=== PATIENT | female | born 1970 | race Caucasian/White ===

== ENCOUNTER 2022-02-06 16:54 | Emergency (ER) | payer BC, SELFPAY ==
[2022-02-06 17:13] VITALS: BP 157/89; PULSE 81; RESP 16; TEMP 36.9; O2SAT 97; BMI 29.3
--- NOTE | 2022-02-06 19:04 | ED_ITS ---
HPI - General Adult General Chief complaint: Dizziness/Vertigo Stated complaint: Dizziness Time Seen by Provider: 02/06/22 18:42 History of Present Illness HPI narrative: This 52-year-old female comes in reporting dizziness for the past 3 or 4 days. She clarifies this to mean vertigo. She states that if she remains still she has no vertigo symptoms but these recur with movement especially if turning her head to the right. She does not report any hearing changes and has no sensory or motor deficit. Prior to this she has been in good health. Related Data Home Medications Medication Instructions Recorded Confirmed betamethasone, augmented 0.05 % applic TOPICAL 02/06/22 topical cream fluoxetine 20 mg capsule mg 02/06/22 guselkumab 100 mg/mL subcutaneous mg SUBCUT 02/06/22 auto-injector (Tremfya) omeprazole 20 mg capsule,delayed mg 02/06/22 release rosuvastatin 10 mg tablet mg 02/06/22 Previous Rx's Medication Instructions Recorded meclizine 25 mg tablet 25 mg PO QID #20 tab 02/06/22 ondansetron HCl 4 mg tablet 4 mg PO Q6H #20 tab 02/06/22 Allergies Allergy/AdvReac Type Severity Reaction Status Date / Time No Known Drug Allergies Allergy Verified 02/06/22 17:24 Review of Systems Status of ROS: Reports: 10 or more systems reviewed and unremarkable except as noted in History and below Narrative: Constitutional: No fevers, no weight gain or loss. Eyes: No discharge. No vision changes. HENT: No congestion, no sore throat, no ear pain. Cardiovascular: No chest pain, no palpitations. Respiratory: No shortness of breath, no wheezes, no cough. Gastrointestinal: No abdominal pain, no vomiting, no diarrhea. Genitourinary: No dysuria, no hematuria. Musculoskeletal: Normal range of motion. Skin: No rashes, no pruritis. Neurological: No weakness, sensory change, speech change. Vertigo symptoms as described above. Endo/Heme/Allergies: No bruising or bleeding. No polydipsia. Pysch: no suicidality, no anxiety, no insomnia. All other systems reviewed and are negative. Exam Narrative: Exam Narrative: Constitutional: Well-developed, well-nourished, no acute distress. HEENT: Normocephalic, atraumatic. Neck: Normal range of motion. Nontender. Supple. Heart: Regular. No murmurs. Normal rate. Intact distal pulses. Lungs: Clear to auscultation. No chest discomfort. No wheezes, rhonchi, or rales. Abdomen: Normal bowel sounds. Nontender. No rebound tenderness. Genitalia: Deferred. Back: No midline tenderness. Normal range of motion. Extremities: Normal range of motion. No injury. Skin: Intact. No rash. Warm. No erythema or pallor. Neurologic: No altered sensation. No weakness. Alert and oriented. No facial asymmetry. Tongue is midline. No pronator drift. [id number] is normal. Heel to dillon is normal. Psychiatric: No suicidality. No anxiety or depression. No insomnia. Nursing notes and vitals signs are reviewed. Const: Vital Signs, click to edit/add: Vital Signs - 24 hr 02/06/22 17:13 Temperature 98.5 F Pulse Rate [Right Radial] 81 Respiratory Rate 16 Blood Pressure [Ri ght Upper Arm] 157/89 H Pulse Oximetry 97 Course Vital Signs Vital signs: Initial Vital Signs Temperature 98.5 F 02/06/22 17:13 Temperature Source Temporal Artery Scan 02/06/22 17:13 Pulse Rate 81 02/06/22 17:13 Respiratory Rate 16 02/06/22 17:13 Blood Pressure 157/89 H 02/06/22 17:13 Blood Pressure Mean 111 02/06/22 17:13 Blood Pressure Position Sitting 02/06/22 17:13 Pulse Oximetry 97 02/06/22 17:13 Oxygen Delivery Method 02/06/22 17:13 Vital Signs Temperature 98.5 F 02/06/22 17:13 Pulse Rate 81 02/06/22 17:13 Respiratory Rate 16 02/06/22 17:13 Blood Pressure 157/89 H 02/06/22 17:13 Pulse Oximetry 97 02/06/22 17:13 Temperature 98.5 F 02/06/22 17:13 Pulse Rate 81 02/06/22 17:13 Respiratory Rate 16 02/06/22 17:13 Blood Pressure 157/89 H 02/06/22 17:13 Pulse Oximetry 97 02/06/22 17:13 Medical Decision Making MDM Narrative Medical decision making narrative: This patient comes in reporting vertigo as described above. Her symptoms are not persistent or constant. They completely go away when remaining still suggesting a peripheral process and not a central vertigo from a CVA. The patient's neurologic exam is completely normal. I discussed lab and imaging options but indicated that these will not help in the diagnosis for these common causes of vertigo. Her symptoms are worse when turning her head to the right which may be suggestive of a benign positional vertigo from a canalith in the semi circular canal. I did describe the option of having a canalith repositioning maneuver that can be done in physical therapy or certain clinicians can perform this. She did receive meclizine and Zofran which brought some symptomatic relief. A prescription for these medicines is provided. Discharge Plan Discharge Clinical Impression: Benign paroxysmal positional vertigo Patient Disposition: Home, Self-Care Condition: Stable Instructions: Benign Paroxysmal Positional Vertigo (ED) Additional Instructions: Take medication as prescribed and needed. Follow up with physical therapy or clinic if not improving for consideration of a canalith repositioning maneuver. Prescriptions: New ondansetron HCl 4 mg tablet 4 mg PO Q6H Qty: 20 0RF meclizine 25 mg tablet 25 mg PO QID Qty: 20 0RF No Action betamethasone, augmented 0.05 % cream TOPICAL 0RF Label Comments: APPLY TO AFFECTED AREA ON LEGS AND TRUNK 1-2X DAILY FOR UP TO 2 WEEKS NEEDED omeprazole 20 mg capsule,delayed release(DR/EC) 0RF Label Comments: TAKE 1 CAPSULE BY MOUTH DAILY fluoxetine 20 mg capsule 0RF Label Comments: TAKE 1 CAPSULE BY MOUTH DAILY rosuvastatin 10 mg tablet 0RF Label Comments: TAKE 1 TABLET BY MOUTH DAILY Tremfya 100 mg/mL auto-injector SUBCUT 0RF Label Comments: 2 months ago Follow Up/Referrals: Ángela Yan MD [Primary Care Provider] - Stand Alone Forms: [employer] Info Instructions
[2022-02-06] MEDS: MECLIZINE HCL 25 MG TABLET PO (19:51)
[2022-02-06] MEDS: ONDANSETRON ODT 4 MG TAB PO (19:52)
== END 2022-02-06 20:37 | disposition home or self-care (01) ==
PROVIDERS: Emergency Provider Emergency Medicine Emergency Medical Services; PCP Family Medicine
DX: H81.10 Benign paroxysmal vertigo, unspecified ear (principal)
CPT/HCPCS: 99284; A9270

== ENCOUNTER 2022-06-17 14:15 | Outpatient (CLI) | payer BC, SELFPAY ==
--- OUTSIDE RECORDS SUMMARY | 2022-06-17 14:17 | XMS_ITS | Clinical Summary ---
:1970 Author Organization [facility] [place] [address] Care Team Providers Name Role Phone Ángela Yan MD Primary Care Provider [phone] Allergies No known active allergies Medications Medication Sig Dispensed Refills Start Date End Date Status rosuvastatin Take 1 tablet by 0 06/06/2020 Active (CRESTOR) 10 mg mouth once daily. tablet FLUoxetine (PROZAC) Take 1 capsule by 0 05/10/2020 Active 20 mg capsule mouth once daily. DENNIS,CF, PEN 40 Inject 1 pen 0 06/07/2020 Active mg/0.4 mL pnkt subcutaneous every 2 weeks. omeprazole Take 1 capsule by 0 06/20/2020 Active (PRILOSEC) 20 mg mouth once daily Delayed-Release before a meal. 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 tower Pulse 83 06/20/2020 9:05 AM GOLD LEAF LABORER Temperature - - Respiratory Rate - - Oxygen Saturation 96% 06/20/2020 9:05 AM GOLD LEAF LABORER Inhaled Oxygen Concentration - - Weight 72.9 kg (160 lb 12.8 oz) 06/20/2020 9:05 AM GOLD LEAF LABORER Height - - Body Mass Index - - Plan of Treatment Health Maintenance Due Date Last Done Comments COVID-19 vaccine series (#1) 1970 Tdap 01/24/1979 Depression screening for age 12+ 1980 BMI (ht and wt on same day) for 01/24/1986 age 18+ Hepatitis C screening for age 0701/24/1986 18-79 Tetanus booster 1988 Colonoscopy through age 75 01/24/2013 Lipids for age 45-75 01/24/2013 Mammogram for age 45-75 01/24/2013 Zoster (shingles) series for age 0701/24/2018 50+ (1 of 2) Influenza for age 50-64 03/27/2022 Pap test for age 21-65 05/28/2023 05/28/2020, 05/28/2020, 12/29/2014, Additional history exists Results Not on filefrom Last 3 Months Insurance Payer Benefit Plan / Subscriber ID Effective Dates Phone Addre ss Type Group BLUE [employer]OSS [employer] [place] [id number] 2009-Present [address] [address] [place] [address] Care Teams Antenna Specialist Relationship Specialty Start Date End Date Ángela Yan MD PCP - General Family Practice 06/20/201999 [place] [id number]
--- NOTE | 2022-06-17 14:40 | CRLHL7_ITS ---
For Patients: As a result of the Century Cures Act, medical imaging exams and procedure reports are released immediately into your electronic medical record. You may view this report before your referring provider. If you have questions, please contact your health care provider. BILATERAL SCREENING MAMMOGRAM WITH COMPUTER-AIDED DETECTION AND TOMOSYNTHESIS TECHNIQUE: CC and MLO views were obtained. These mammographic images have been obtained using full-field digital technique. These mammographic images were interpreted with the benefit of computer-aided detection. Breast Tomosynthesis was used in this interpretation. COMPARISON FILM: 03/04/22, 01/10/20, 11/09/18. FINDINGS: There are scattered areas of fibroglandular density IMPRESSION: There is no radiographic evidence for malignancy. ASSESSMENT: BI-RADS Category 1: Negative RECOMMENDATION: Routine screening mammogram in 1 year. A lay language report of this examination will be provided to the patient. Praveen Liang M.D. Diagnostic Radiologist [email or web address] LOULOU/Dictated by: Praveen Liang MD @ 06/18/2022 12:46:00 PM (Electronically Signed)
== END 2022-06-17 14:16 | disposition home or self-care (01) ==
PROVIDERS: PCP Family Medicine; Visit Provider Family Medicine
DX: Z12.31 Encounter for screening mammogram for malignant neoplasm of breast (principal)
CPT/HCPCS: 77063; 77067

== ENCOUNTER 2022-07-31 10:54 | Outpatient (CLI) | payer BC, SELFPAY ==
[2022-07-31 10:08] LABS: Albumin* 4.3 g/dL (3.3-5.0); Chloride* 106 mmol/L (96-114); Sodium* 142 mmol/L (135-149)
[2022-07-31 10:09] LABS: Potassium* 4.4 mmol/L (3.6-5.1)
[2022-07-31 10:10] LABS: Cholesterol* 167 mg/dL (90-199)
[2022-07-31 10:11] LABS: Alanine Aminotransferase* 23 U/L (4-35); Alkaline Phosphatase* 64 U/L (40-150); Aspartate Amino Transferase* 25 U/L (12-35); Bilirubin Total* 0.4 mg/dL (0.1-1.5); Blood Urea Nitrogen* 12 mg/dL (7-30); Carbon Dioxide* 28 mmol/L (20-32); Creatinine* 0.8 mg/dL (0.5-1.5); Estimated Glomerular Filt Rate 88 ml/min; Glucose* 98 mg/dL (60-115); Total Protein* 6.4 g/dL (6.0-8.3); Triglycerides* 79 mg/dL (40-149)
[2022-07-31 10:12] LABS: HDL Cholesterol* 57 mg/dL (>=50); LDL Cholesterol Calculated 94 mg/dL (<100)
== END 2022-07-31 10:55 | disposition home or self-care (01) ==
PROVIDERS: PCP Family Medicine; Visit Provider Family Medicine
DX: Z00.00 Encounter for general adult medical examination without abnormal findings (principal); E78.5 Hyperlipidemia, unspecified; E66.3 Overweight; E66.9 Obesity, unspecified; R03.0 Elevated blood-pressure reading, without diagnosis of hypertension
CPT/HCPCS: 80053; 80061

== ENCOUNTER 2022-10-17 13:50 | Outpatient (REF) | payer BC, SELFPAY ==
[2022-10-17 14:13] LABS: Basophils Absolute Auto 0.04 K/uL (0.00-0.30); Basophils Percent Auto 0.6 % (0.0-3.0); Eosinophils Absolute Auto 0.14 K/uL (0.00-0.50); Eosinophils Percent Auto 2.2 % (0.0-7.0); Hematocrit 43.5 % (33.0-51.0); Hemoglobin* 14.6 gm/dL (12.0-16.0); Immature Granulocytes Abs Auto 0.01 K/uL (0.00-0.30); Immature Granulocytes Pct Auto 0.2 %; Lymphocytes Absolute Auto 2.04 K/uL (0.90-2.90); Lymphocytes Percent Auto 31.9 % (20-44); Mean Corpuscular HGB Conc 34 gm/dL (32-36); Mean Corpuscular Hemoglobin 30 pg (26-34); Mean Corpuscular Volume 89 fL (80-100); Monocytes Percent Auto 6.4 % (0.0-11.0); Neutrophils Absolute Auto 3.75 K/uL (1.7-7.0); Neutrophils Percent Auto 58.7 % (42.0-72.0); Platelet Count* 249 K/uL (140-440); RDW Coefficient of Variation % 12.5 % (11.5-15.5); Red Blood Count 4.89 m/uL (4.00-5.20); White Blood Count* 6.39 K/uL (4.50-11.00)
[2022-10-17 14:20] LABS: Slide Review Reflex No
[2022-10-17 14:25] LABS: Albumin* 4.5 g/dL (3.3-5.0); Chloride* 105 mmol/L (96-114); Sodium* 139 mmol/L (135-149)
[2022-10-17 14:26] LABS: Potassium* 4.4 mmol/L (3.6-5.1)
[2022-10-17 14:28] LABS: Alkaline Phosphatase* 61 U/L (40-150); Aspartate Amino Transferase* 29 U/L (12-35); Bilirubin Total* 0.5 mg/dL (0.1-1.5); Blood Urea Nitrogen* 14 mg/dL (7-30); Carbon Dioxide* 29 mmol/L (20-32); Estimated Glomerular Filt Rate 67 ml/min
[2022-10-17 14:29] LABS: Alanine Aminotransferase* 32 U/L (4-35); Calcium* 9.2 mg/dL (8.4-10.6); Glucose* 85 mg/dL (60-115)
== END 2022-10-17 13:51 | disposition home or self-care (01) ==
LOC: NPINS 13:50
PROVIDERS: PCP Family Medicine
DX: Z79.899 Other long term (current) drug therapy (principal)
CPT/HCPCS: 80053; 85025; 86480

== ENCOUNTER 2023-08-28 13:03 | Outpatient (CLI) | payer BC, SELFPAY ==
--- OUTSIDE RECORDS SUMMARY | 2023-08-28 13:06 | XMS_ITS | Clinical Summary ---
Author Name Unknown Organization [facility] Address [place], [place] [address] Care Team Providers Care Solution Engineer Name Role Phone Ángela Yan MD Primary Care Provider + Allergies No known active allergies Medications Medication Sig Dispensed Refills Start Date End Date Status rosuvastatin (CRESTOR) 10 mg tablet Take 1 tablet by mouth once daily. 0 06/06/2020 Active FLUoxetine (PROZAC) 20 mg capsule Take 1 capsule by mouth once daily. 0 05/10/2020 Active HUMIRA,CF, PEN 40 mg/0.4 mL pnkt Inject 1 pen subcutaneous every 2 weeks. 0 06/07/2020 Active omeprazole (PRILOSEC) 20 mg Delayed-Release capsule Take 1 capsule by mouth once daily before a meal. 0 06/20/2020 Active Family History Medical History Relation Name Comments Stroke Maternal Grandfather Stroke Maternal Grandmother Relation Name Status Comments Maternal Grandfather Maternal Grandmother Social History Tobacco Use Types Packs/Day Years Used Date Smoking Tobacco: Never Smokeless Tobacco: Never Tobacco Cessation:Counseling Given: Yes Sex and Gender Information Value Date Recorded Sex Assigned at Not on file Gender Identity Not on file Sexual Orientation Not on file Obstetrics History Last Filed Vital Signs Vital Sign Reading Time Taken Comments Blood Pressure 134/84 06/20/2020 9:05 AM 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[employer] FURNACE tow er Pulse 83 06/20/2020 9:05 AM 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[employer]URNACE Temperature - - Respiratory Rate - - Oxygen Saturation 96% 06/20/2020 9:05 AM 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[employer]URNACE Inhaled Oxygen Concentration - - Weight 72.9 kg (160 lb 12.8 oz) 06/20/2020 9:05 AM 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[employer] FURNACE Height - - Body Mass Index - - Plan of Treatment Health Maintenance Due Date Last Done Comments COVID-19 vaccine series (#1) 1970 Tdap 01/24/1979 Depression screening for age 12+ 1980 HIV for age 15-65 01/24/1983 BMI (ht and wt on same day) for age 18+ 01/24/1986 Hepatitis C screening for age 18-79 01/24/1986 Tetanus booster 1988 Colonoscopy through age 75 01/24/2013 Lipids for age 45-75 01/24/2013 Mammogram for age 45-75 01/24/2013 Zoster (shingles) series for age 50+ (1 of 2) 01/24/2018 Influenza for age 50-64 03/27/2023 Pap test for age 21-65 05/28/2023 0, 05/28/2020, 12/29/2014, Additional history exists Pneumococcal series for age 6-64 Aged Out No longer eligible based on patient's age to complete this topic Care Teams Solution Engineer Relationship Specialty Start Date End Date Ángela Yan MD [address] [facility] [place] [address] PCP - General Family Practice 06/20/20
--- NOTE | 2023-08-28 13:20 | CRLHL7_ITS ---
For Patients: As a result of the Century Cures Act, medical imaging exams and procedure reports are released immediately into your electronic medical record. You may view this report before your referring provider. If you have questions, please contact your health care provider. BILATERAL DIGITAL SCREENING MAMMOGRAM WITH TOMOSYNTHESIS AND COMPUTER-AIDED DETECTION CLINICAL HISTORY: Routine screening exam. COMPARISON: 06/17/2022, 03/04/2021, 01/10/2020, 11/09/2018. TECHNIQUE: Digital mammogram in CC and MLO projections including computer-aided detection (CAD). Tomosynthesis utilized. BREAST COMPOSITION: There are areas of scattered fibroglandular density. FINDINGS: RIGHT Breast: Focal asymmetric density 12 o`clock 5 cm from the nipple. LEFT Breast: No suspicious findings. IMPRESSION: RIGHT breast asymmetry/mass. RECOMMENDATIONS: Additional mammographic views of the RIGHT breast including 3D spot compression CC/MLO. RIGHT breast ultrasound may also be required. BI-RADS Category 0: Incomplete: Need Additional Imaging Evaluation and/or Prior Mammograms for Comparison [facility] will contact the patient for follow-up. A lay language report of this examination will be provided to the patient. Dictated by Praveen Liang MD @ 09/01/2023 10:13:53 AM jj/Dictated by: Praveen Liang MD @ 09/01/2023 10:13:00 AM (Electronically Signed)
== END 2023-08-28 13:04 | disposition home or self-care (01) ==
LOC: MAMMO 13:04
PROVIDERS: PCP Family Medicine; Visit Provider Family Medicine
DX: Z12.31 Encounter for screening mammogram for malignant neoplasm of breast (principal); N63.10 Unspecified lump in the right breast, unspecified quadrant
CPT/HCPCS: 77063; 77067

== ENCOUNTER 2023-09-08 08:40 | Outpatient (CLI) | payer BC, SELFPAY ==
--- OUTSIDE RECORDS SUMMARY | 2023-09-08 08:42 | XMS_ITS | Clinical Summary ---
Author Name Unknown Organization [employer] [facility] Address [place], [place] [address] Care Team Providers Care Prosthetic Assistant Name Role Phone Ángela Yan MD Primary [...] Comments Blood Pressure 134/84 06/20/2020 9:05 AM BOARDING ROOM FIXER tow er Pulse 83 06/20/2020 9:05 AM BOARDING ROOM FIXER Temperature - - Respiratory Rate - - Oxygen Saturation 96% 06/20/2020 9:05 AM BOARDING ROOM FIXER Inhaled Oxygen Concentration - - Weight 72.9 kg (160 lb 12.8 oz) 06/20/2020 9:05 AM BOARDING ROOM FIXER Height - - Body Mass Index - [...] age to complete this topic Care Teams Prosthetic Assistant Relationship Specialty Start Date End Date Ángela Yan MD [address] [facility] [place] [address] PCP - General Family Practice 06/20/20
--- NOTE | 2023-09-08 08:45 | MM_ITS ---
DIAGNOSTIC RIGHT BREAST MAMMOGRAM AND DIAGNOSTIC RIGHT BREAST ULTRASOUND. INDICATION: ASYMMETRIC DENSITY RIGHT BREAST. COMPARISON: 08/28/2023. TECHNIQUE: 3D SPOT COMPRESSION ML/MLO RIGHT BREAST MAMMOGRAM IMAGES SUBMITTED. DECREASED CONSPICUITY OF THE PREVIOUSLY NOTED ASYMMETRIC DENSITY. NO SUSPICIOUS MASS. NO SUSPICIOUS CALCIFICATIONS OR ADENOPATHY. TARGETED RIGHT BREAST ULTRASOUND PERFORMED AT 1:00 A.M. 5 CM FROM THE NIPPLE. A HYPOECHOIC BENIGN CYST IS PRESENT AT MID DEPTH MEASURING 6 X 3 X 7 MM. NO ABNORMAL VASCULARITY. IMPRESSION: BENIGN FIBROCYSTIC CHANGE RIGHT BREAST 1:00 A.M. 5 CM FROM THE NIPPLE. NO EVIDENCE OF MALIGNANCY. NO SUSPICIOUS FINDINGS. BI-RADS CATEGORY 2. BENIGN. RECOMMENDATIONS: ROUTINE ANNUAL BILATERAL SCREENING MAMMOGRAPHY. RESULTS AND RECOMMENDATIONS DISCUSSED WITH THE PATIENT.
== END 2023-09-08 08:41 | disposition home or self-care (01) ==
LOC: MAMMO 08:40
PROVIDERS: PCP Family Medicine; Visit Provider Family Medicine
DX: N64.89 Other specified disorders of breast (principal)
CPT/HCPCS: 76642; 77065; G0279

== ENCOUNTER 2023-09-22 08:26 | Outpatient (CLI) | payer BC, SELFPAY | END 2023-09-22 08:27 | disposition home or self-care (01) | LOC: NFLDREF 09-30 12:39 | PROVIDERS: PCP Family Medicine; Referring Provider Family Medicine; Visit Provider Family Medicine | DX: R03.0 Elevated blood-pressure reading, without diagnosis of hypertension (principal); Z13.6 Encounter for screening for cardiovascular disorders | CPT/HCPCS: 80053; 80061 ==

== ENCOUNTER 2023-10-09 11:51 | Outpatient (CLI) | payer BC, SELFPAY | END 2023-10-09 11:52 | disposition home or self-care (01) | LOC: NFLDREF 10-14 12:13 | PROVIDERS: PCP Family Medicine; Referring Provider Family Medicine; Visit Provider Family Medicine | DX: I10 Essential (primary) hypertension (principal) | CPT/HCPCS: 80048 ==

== ENCOUNTER 2024-09-27 08:22 | Outpatient (CLI) | payer BC, SELFPAY | END 2024-09-27 08:23 | disposition home or self-care (01) | LOC: NFLDREF 23:19 | PROVIDERS: PCP Family Medicine; Referring Provider Family Medicine; Visit Provider Family Medicine | DX: E78.5 Hyperlipidemia, unspecified (principal); I10 Essential (primary) hypertension | CPT/HCPCS: 80053; 80061 ==

== ENCOUNTER 2024-09-28 13:52 | Outpatient (CLI) | payer BC, SELFPAY | END 2024-09-28 13:53 | disposition home or self-care (01) | LOC: MAMMO 13:52 | PROVIDERS: PCP Family Medicine; Visit Provider Family Medicine | DX: Z12.31 Encounter for screening mammogram for malignant neoplasm of breast (principal) | CPT/HCPCS: 77063; 77067 ==